=== PATIENT | female | born 1940 | race Caucasian/White ===

== ENCOUNTER 2023-05-03 17:01 | Inpatient (IN) | payer BC ==
[~2023-05-03] VITALS: Ht 165.1 cm; Wt 62.1 kg
[2023-05-03] MEDS ORDERED: ONDANSETRON ODT 4 MG TAB.RAPDIS SL ONE (17:45)
[2023-05-03] MEDS ORDERED: ONDANSETRON ODT 4 MG TAB.RAPDIS ONE (17:48)
[2023-05-03 20:16] LABS: DIFFERENTIAL COMMENT 0; RED CELL DISTRIBUTION WIDTH 14.8 % (12.3-17.7)
[2023-05-03 20:20] LABS: BASOPHILS % (AUTO) 0.3 % (0.0-2.0); EOSINOPHILS % (AUTO) 0.3 % (0.0-7.0); HEMATOCRIT 23.9 % (31.2-41.9); LYMPHOCYTES # (AUTO) 0.5 K/uL (0.8-4.8); LYMPHOCYTES % (AUTO) 4.6 % (20.5-51.5); MEAN CORPUSCULAR HEMOGLOBIN 29.6 uug (24.7-32.8); MEAN CORPUSCULAR HGB CONC 34 g/dL (32.3-35.6); MEAN CORPUSCULAR VOLUME 88.3 fL (75.5-95.3); MONOCYTES # (AUTO) 0.8 K/uL (0.1-1.30); NEUTROPHILS % (AUTO) 86.8 % (38.5-71.5); PLATELET COUNT (AUTO) 309 K/uL (179-408); WHITE BLOOD COUNT (AUTO) 10.3 K/uL (3.8-11.8)
[2023-05-03 20:22] LABS: CALCIUM 8.8 mg/dL (8.5-10.1); CARBON DIOXIDE 25 mmol/L (21-32); CHLORIDE 102 mmol/L (98-107); CREATININE 2.1 mg/dL (0.6-1.3); GLUCOSE 163 mg/dL (74-106); POTASSIUM 3.8 mmol/L (3.5-5.1); SODIUM SERUM 138 mmol/L (136-145); UREA NITROGEN, BLOOD 44 mg/dL (7-18)
[2023-05-03 20:34] LABS: ALANINE AMINOTRANSFERASE 21 U/L (14-59); ALBUMIN 2.8 g/dL (3.4-5.0); ALKALINE PHOSPHATASE 87 U/L (50-136); ASPARTATE AMINOTRANSFERASE 12 U/L (15-37); BILIRUBIN,DIRECT 0.2 mg/dL (0.0-0.2); BILIRUBIN,TOTAL 0.5 mg/dL (0.2-1.0); NT-PRO BNP 1687 pg/mL (0-125); TOTAL PROTEIN, SERUM 6.2 g/dL (6.4-8.2)
[2023-05-03] MEDS ORDERED: LIDOCAINE HCL 2% 20 ML VIAL ONE (20:37)
[2023-05-03] MEDS ORDERED: ASPIRIN 325 MG TABLET PO ONE (22:00)
[2023-05-03] MEDS ORDERED: MORPHINE SULFATE 2 MG/1 ML DISP.SYRIN IV PRN (22:15)
[2023-05-03] MEDS ORDERED: ONDANSETRON 4 MG/2 ML VIAL IV PRN (22:15)
[2023-05-04] MEDS ORDERED: LORAZEPAM 2 MG/1 ML VIAL IV ONE ×2 (00:30→02:00)
[2023-05-04] MEDS ORDERED: LORAZEPAM 2 MG/1 ML VIAL ONE ×2 (00:35→01:57)
[2023-05-04 07:20] LABS: BASOPHILS % (AUTO) 0.5 % (0.0-2.0); EOSINOPHILS # (AUTO) 0.1 K/uL (0.0-0.7); EOSINOPHILS % (AUTO) 1.6 % (0.0-7.0); LYMPHOCYTES # (AUTO) 0.9 K/uL (0.8-4.8); LYMPHOCYTES % (AUTO) 11.6 % (20.5-51.5); MEAN CORPUSCULAR HEMOGLOBIN 29.6 uug (24.7-32.8); MEAN CORPUSCULAR HGB CONC 34 g/dL (32.3-35.6); MEAN CORPUSCULAR VOLUME 87.6 fL (75.5-95.3); MONOCYTES # (AUTO) 0.9 K/uL (0.1-1.30); MONOCYTES % (AUTO) 11.9 % (0.0-11.0); NEUTROPHILS # (AUTO) 5.9 K/uL (1.8-8.9); NEUTROPHILS % (AUTO) 74.4 % (38.5-71.5); PLATELET COUNT (AUTO) 299 K/uL (179-408); RED CELL DISTRIBUTION WIDTH 14.2 % (12.3-17.7); WHITE BLOOD COUNT (AUTO) 7.9 K/uL (3.8-11.8)
[2023-05-04] MEDS ORDERED: PANTOPRAZOLE SODIUM 40 MG TABLET.DR PO ONE (07:49)
[2023-05-04 07:50] LABS: CALCIUM 8.5 mg/dL (8.5-10.1); CARBON DIOXIDE 25 mmol/L (21-32); CHLORIDE 103 mmol/L (98-107); CHOLESTEROL 155 mg/dL (<200); CREATININE 2.2 mg/dL (0.6-1.3); GLUCOSE 116 mg/dL (74-106); HDL CHOLESTEROL 57 mg/dL (40-60); PHOSPHOROUS 4.5 mg/dL (2.5-4.9); POTASSIUM 3.7 mmol/L (3.5-5.1); SODIUM SERUM 138 mmol/L (136-145); TRIGLYCERIDES 110 MG/DL (30-150); UREA NITROGEN, BLOOD 46 mg/dL (7-18)
[2023-05-04] MEDS: PANTOPRAZOLE SODIUM 40 MG TABLET.DR PO SCH (07:52)
[2023-05-04 08:16] LABS: RED BLOOD CELL COUNT(AUTO) 2.36 MIL/uL (3.63-4.92)
[2023-05-04 08:17] LABS: DIFFERENTIAL COMMENT 1; HEMATOCRIT 20.7 % (31.2-41.9)
[2023-05-04] MEDS ORDERED: APIX2.5T PO (08:23)
[2023-05-04] MEDS ORDERED: VENL37.55 PO (08:23)
[2023-05-04] MEDS ORDERED: LABE100T5 PO (08:23)
[2023-05-04] MEDS ORDERED: HYDR100T27 PO (08:23)
[2023-05-04] MEDS ORDERED: DOCU-286 PO (08:23)
[2023-05-04] MEDS ORDERED: SODI650T PO (08:23)
[2023-05-04] MEDS ORDERED: MIRT-73 PO (08:23)
[2023-05-04] MEDS ORDERED: PANT40TA2 PO (08:23)
[2023-05-04] MEDS ORDERED: SIME62.5 PO (08:24)
[2023-05-04] MEDS ORDERED: CALC-1210 PO (08:24)
[2023-05-04 14:16] LABS: IRON, SERUM 13 ug/dL (50-175)
[2023-05-04 15:24] LABS: FERRITIN 38 ng/mL (8-252)
[2023-05-04 20:45] VITALS: BP 132/73; TEMP 97.5; O2SAT 96
[2023-05-04] MEDS: ACETAMINOPHEN 325 MG TABLET PO PRN (22:57)
[2023-05-05] VITALS (9 sets, daily range): BP systolic 129–174; BP diastolic 64–78; TEMP 96.9–98.9; O2SAT 95–98
[2023-05-05] MEDS: ACETAMINOPHEN 325 MG TABLET PO PRN ×2 (05:31→18:29)
[2023-05-05] MEDS: PANTOPRAZOLE SODIUM 40 MG TABLET.DR PO SCH (06:03)
[2023-05-05 07:10] LABS: BASOPHILS % (AUTO) 0.4 % (0.0-2.0); EOSINOPHILS # (AUTO) 0.2 K/uL (0.0-0.7); EOSINOPHILS % (AUTO) 3.5 % (0.0-7.0); LYMPHOCYTES # (AUTO) 0.9 K/uL (0.8-4.8); LYMPHOCYTES % (AUTO) 13.4 % (20.5-51.5); MEAN CORPUSCULAR HEMOGLOBIN 29.6 uug (24.7-32.8); MEAN CORPUSCULAR HGB CONC 33 g/dL (32.3-35.6); MEAN CORPUSCULAR VOLUME 88.7 fL (75.5-95.3); MONOCYTES # (AUTO) 0.8 K/uL (0.1-1.30); NEUTROPHILS # (AUTO) 4.8 K/uL (1.8-8.9); NEUTROPHILS % (AUTO) 70.7 % (38.5-71.5); PLATELET COUNT (AUTO) 300 K/uL (179-408); RED CELL DISTRIBUTION WIDTH 14.5 % (12.3-17.7); WHITE BLOOD COUNT (AUTO) 6.8 K/uL (3.8-11.8)
[2023-05-05 07:26] LABS: DIFFERENTIAL COMMENT 1; HEMATOCRIT 20.2 % (31.2-41.9); RED BLOOD CELL COUNT(AUTO) 2.27 MIL/uL (3.63-4.92)
[2023-05-05 07:28] LABS: ALANINE AMINOTRANSFERASE 14 U/L (14-59); ALBUMIN 2.5 g/dL (3.4-5.0); ALKALINE PHOSPHATASE 78 U/L (50-136); ASPARTATE AMINOTRANSFERASE 14 U/L (15-37); BILIRUBIN,TOTAL 0.6 mg/dL (0.2-1.0); CALCIUM 8.2 mg/dL (8.5-10.1); CARBON DIOXIDE 26 mmol/L (21-32); CHLORIDE 103 mmol/L (98-107); CREATINE KINASE, TOTAL 50 U/L (26-192); CREATININE 2.4 mg/dL (0.6-1.3); GLUCOSE 133 mg/dL (74-106); SODIUM SERUM 138 mmol/L (136-145); TOTAL PROTEIN, SERUM 5.8 g/dL (6.4-8.2); UREA NITROGEN, BLOOD 50 mg/dL (7-18)
[2023-05-05 08:15] LABS: HEMOGLOBIN 6.7 g/dL (10.9-14.3)
[2023-05-05 13:32] LABS: BAND % (MANUAL) 3 % (0-10); NEUTROPHILS % (MANUAL) 66 % (42-75)
[2023-05-05 13:33] LABS: ANISOCYTOSIS 2+; EOSINOPHILS % (MANUAL) 5 % (0-8); HYPOCHROMASIA 1+; LYMPHOCYTES % (MANUAL) 17 % (20-40); MONOCYTES % (MANUAL) 11 % (2-10); PLATELET ESTIMATE ADEQUATE
[2023-05-05] MEDS ORDERED: DOCUSATE SODIUM 100 MG CAPSULE PO PRN (20:45)
[2023-05-05] MEDS ORDERED: SIMETHICONE 80 MG TAB.CHEW PO PRN (21:00)
[2023-05-05] MEDS: LABETALOL HCL 100 MG TABLET PO SCH (21:04)
[2023-05-05] MEDS ORDERED: LORAZEPAM 1 MG TABLET PO PRN (22:45)
[2023-05-06] MEDS: ACETAMINOPHEN 325 MG TABLET PO PRN ×4 (01:37→20:14)
[2023-05-06 04:08] LABS: PTH, INTACT 69 pg/mL (15-65)
[2023-05-06] MEDS: HYDROCODONE/APAP 5-325MG TABLET PO PRN ×2 (06:42→23:40)
[2023-05-06 07:41] LABS: BASOPHILS % (AUTO) 0.6 % (0.0-2.0); EOSINOPHILS # (AUTO) 0.5 K/uL (0.0-0.7); EOSINOPHILS % (AUTO) 6.5 % (0.0-7.0); HEMATOCRIT 22.2 % (31.2-41.9); LYMPHOCYTES % (AUTO) 13.8 % (20.5-51.5); MEAN CORPUSCULAR HEMOGLOBIN 29.5 uug (24.7-32.8); MEAN CORPUSCULAR HGB CONC 33 g/dL (32.3-35.6); MEAN CORPUSCULAR VOLUME 88.5 fL (75.5-95.3); MONOCYTES # (AUTO) 0.9 K/uL (0.1-1.30); MONOCYTES % (AUTO) 11.7 % (0.0-11.0); NEUTROPHILS # (AUTO) 4.9 K/uL (1.8-8.9); NEUTROPHILS % (AUTO) 67.4 % (38.5-71.5); PLATELET COUNT (AUTO) 292 K/uL (179-408); RED BLOOD CELL COUNT(AUTO) 2.51 MIL/uL (3.63-4.92); RED CELL DISTRIBUTION WIDTH 14.6 % (12.3-17.7); WHITE BLOOD COUNT (AUTO) 7.3 K/uL (3.8-11.8)
[2023-05-06 07:54] LABS: CALCIUM 8.2 mg/dL (8.5-10.1); CARBON DIOXIDE 26 mmol/L (21-32); CHLORIDE 103 mmol/L (98-107); CREATININE 2.1 mg/dL (0.6-1.3); GLUCOSE 121 mg/dL (74-106); PHOSPHOROUS 4.3 mg/dL (2.5-4.9); POTASSIUM 4.3 mmol/L (3.5-5.1); SODIUM SERUM 137 mmol/L (136-145); UREA NITROGEN, BLOOD 56 mg/dL (7-18)
[2023-05-06 07:57] LABS: DIFFERENTIAL COMMENT 1; HEMOGLOBIN 7.4 g/dL (10.9-14.3)
[2023-05-06] MEDS ORDERED: APIXABAN 2.5 MG TABLET PO SCH (09:00)
[2023-05-06 10:17] VITALS: BP 139/61; TEMP 96.5; O2SAT 92
[2023-05-06] MEDS: hydrALAZINE HCL 50 MG TABLET PO SCH ×3 (10:19→16:17)
[2023-05-06] MEDS: LABETALOL HCL 100 MG TABLET PO SCH ×2 (10:19→16:17)
[2023-05-06] MEDS: PANTOPRAZOLE SODIUM 40 MG TABLET.DR PO SCH ×2 (10:19→16:17)
[2023-05-06] MEDS: SODIUM BICARBONATE 650 MG TABLET PO SCH ×2 (10:24→16:17)
[2023-05-06 11:11] LABS: *BILIRUBIN,URIN NEGATIVE (NEGATIVE); *BLOOD, URINE NEGATIVE (NEGATIVE); *CLARITY,URINE CLEAR (CLEAR); *COLOR,URINE YELLOW (YELLOW); *KETONES,URINE NEGATIVE (NEGATIVE); *UROBILINOGEN,URINE 0.2 E.U./dl (NORMAL); LEUKOCYTE ESTERASE ,URINE 1+ (NEGATIVE); NITRITE, URINE NEGATIVE (NEGATIVE); PH,URINE 5.5 (5.0-8.0); UGLUCOSE NEGATIVE (NEGATIVE)
[2023-05-06 11:13] LABS: *PROTEIN,URINE 3+ (NEGATIVE)
[2023-05-06 11:14] LABS: *CREATININE,URINE 88.4 mg/dL (30-125)
[2023-05-06 11:39] LABS: RBC,URINE 0-3 /HPF (0-3)
[2023-05-06 11:40] LABS: BACTERIA,URINE MODERATE /HPF (NONE SEEN); SQUAMOUS EPITHELIAL CELL,UR MODERATE /HPF (NONE SEEN); YEAST,URINE RARE /HPF (NONE SEEN)
[2023-05-06 12:01] VITALS: BP 126/57; TEMP 98.5; O2SAT 95
[2023-05-06 16:09] VITALS: BP 167/63; TEMP 98.9; O2SAT 95
[2023-05-06 19:35] VITALS: BP 133/61; TEMP 98.4; O2SAT 95
[2023-05-06] MEDS: LORAZEPAM 0.5 MG TABLET PO PRN (20:44)
[2023-05-06 23:32] LABS: *OCCULT BLOOD STOOL NEGATIVE (NEGATIVE)
[2023-05-06 23:41] VITALS: BP 165/70; TEMP 98.5; O2SAT 95
[2023-05-07 01:00] VITALS: BP 144/77
[2023-05-07] MEDS: LORAZEPAM 0.5 MG TABLET PO PRN ×2 (03:01→10:36)
[2023-05-07] MEDS: ACETAMINOPHEN 325 MG TABLET PO PRN ×2 (03:01→14:14)
[2023-05-07] MEDS: HYDROCODONE/APAP 5-325MG TABLET PO PRN ×2 (05:28→18:36)
[2023-05-07 06:51] VITALS: BP 156/73; TEMP 97.4; O2SAT 95
[2023-05-07 07:09] LABS: ALBUMIN 2.6 g/dL (2.9-4.4); ALPHA-1-GLOBULIN 0.3 g/dL (0.0-0.4); ALPHA-2-GLOBULIN 0.8 g/dL (0.4-1.0); BETA GLOBULIN 0.8 g/dL (0.7-1.3); GAMMA GLOBULIN 0.6 g/dL (0.4-1.8); GLOBULIN, TOTAL 2.5 g/dL (2.2-3.9); M-SPIKE Not Observed g/dL (Not Observed)
[2023-05-07 07:46] LABS: BASOPHILS % (AUTO) 0.4 % (0.0-2.0); EOSINOPHILS # (AUTO) 0.5 K/uL (0.0-0.7); HEMATOCRIT 24.5 % (31.2-41.9); HEMOGLOBIN 8.3 g/dL (10.9-14.3); LYMPHOCYTES # (AUTO) 0.9 K/uL (0.8-4.8); LYMPHOCYTES % (AUTO) 11.4 % (20.5-51.5); MEAN CORPUSCULAR HGB CONC 34 g/dL (32.3-35.6); MEAN CORPUSCULAR VOLUME 88.7 fL (75.5-95.3); MONOCYTES # (AUTO) 0.9 K/uL (0.1-1.30); NEUTROPHILS # (AUTO) 5.3 K/uL (1.8-8.9); NEUTROPHILS % (AUTO) 70.2 % (38.5-71.5); PLATELET COUNT (AUTO) 356 K/uL (179-408); RED BLOOD CELL COUNT(AUTO) 2.76 MIL/uL (3.63-4.92); RED CELL DISTRIBUTION WIDTH 14.8 % (12.3-17.7); WHITE BLOOD COUNT (AUTO) 7.5 K/uL (3.8-11.8)
[2023-05-07 08:32] LABS: CALCIUM 8.8 mg/dL (8.5-10.1); CARBON DIOXIDE 23 mmol/L (21-32); CHLORIDE 101 mmol/L (98-107); GLUCOSE 115 mg/dL (74-106); MAGNESIUM 2.3 mg/dL (1.8-2.4); PHOSPHOROUS 4.5 mg/dL (2.5-4.9); POTASSIUM 4.6 mmol/L (3.5-5.1); SODIUM SERUM 136 mmol/L (136-145); UREA NITROGEN, BLOOD 52 mg/dL (7-18)
[2023-05-07 08:34] LABS: DIFFERENTIAL COMMENT 1
[2023-05-07] MEDS: LABETALOL HCL 100 MG TABLET PO SCH ×2 (09:07→16:47)
[2023-05-07] MEDS: PANTOPRAZOLE SODIUM 40 MG TABLET.DR PO SCH ×2 (09:07→16:47)
[2023-05-07] MEDS: hydrALAZINE HCL 50 MG TABLET PO SCH ×3 (09:07→16:47)
[2023-05-07] MEDS: SODIUM BICARBONATE 650 MG TABLET PO SCH ×2 (09:08→16:49)
[2023-05-07 11:30] VITALS: BP 124/62; TEMP 98.2; O2SAT 96
[2023-05-07 15:36] VITALS: BP 157/70; TEMP 98.7; O2SAT 97
[2023-05-07] MEDS ORDERED: CEPH500T PO (16:44)
[2023-05-07 16:47] VITALS: BP 157/70
== END 2023-05-07 18:55 | disposition home health service (06) | DRG 562 ==
LOC: ER 17:03 → TRANSITION 22:00 → TELE3 05-04 20:22 → MEDSURG3 05-05 11:21 → MED 05-05 20:57 → MEDSURG3 05-07 06:30
PROVIDERS: ADMIT Nurse Practitioner Acute Care; ATTEND Nurse Practitioner Acute Care
PROC: 0S9D3ZZ Drainage of Left Knee Joint, Percutaneous Approach (ICD-10-PCS; principal; 2023-05-03)
PROC: 30233N1 Transfusion of Nonautologous Red Blood Cells into Peripheral Vein, Percutaneous Approach (ICD-10-PCS; 2023-05-05)
DX: S83.92XA Sprain of unspecified site of left knee, initial encounter (principal); I21.A1 Myocardial infarction type 2; N17.0 Acute kidney failure with tubular necrosis; D68.59 Other primary thrombophilia; E44.0 Moderate protein-calorie malnutrition; N13.6 Pyonephrosis; S80.02XA Contusion of left knee, initial encounter; R26.2 Difficulty in walking, not elsewhere classified; M25.462 Effusion, left knee; Z91.040 Latex allergy status; D64.9 Anemia, unspecified; W18.30XA Fall on same level, unspecified, initial encounter; Y92.009 Unspecified place in unspecified non-institutional (private) residence as the place of occurrence of the external cause; E66.01 Morbid (severe) obesity due to excess calories; E88.09 Other disorders of plasma-protein metabolism, not elsewhere classified; F32.A Depression, unspecified; G47.33 Obstructive sleep apnea (adult) (pediatric); B96.89 Other specified bacterial agents as the cause of diseases classified elsewhere; K21.9 Gastro-esophageal reflux disease without esophagitis; Z86.718 Personal history of other venous thrombosis and embolism; N18.9 Chronic kidney disease, unspecified; Z90.5 Acquired absence of kidney
CPT/HCPCS: 36415; 70030-TC; 71045; 73560; 73700; 76770; 83550; 83735; 83970; 84100; 84155; 84165; 84300; 84484; 85025; 85651; 86140; 86850; 86900; 86901; 86920; 93005; 93307; A4663; A9150; G0378; J2060; J2270; J3490; P9016; Q0162